=== PATIENT | female | born 1995 | race Caucasian/White ===

== ENCOUNTER 2017-11-30 12:07 | Emergency (ER) | payer MEDICAID, OTHER ==
[~2017-11-30] VITALS: Ht 162.6 cm; Wt 50.0 kg
[2017-11-30 12:13] VITALS: BP 108/76; PULSE 85; RESP 16; TEMP 97.7; O2SAT 100
[2017-11-30] MEDS ORDERED: ONDANSETRON ODT 4 MG TAB PO ONE (16:00)
--- NOTE | 2017-11-30 16:08 | PD ---
HPI Chief Complaint: GI Complaint Time Seen by Provider: 15:50 Travel History International Travel<30 days: No Contact w/Intl Traveler<30days: No Traveled to known affect area: No History of Present Illness HPI Patient is a 21-year-old female comes in complaining of nausea, vomiting, diarrhea. She says she has been around children has had the same symptoms. She says it started yesterday and she is starting to feel better. She says she drinks water this morning and vomited but since then has only had diarrhea. She denies any abdominal pain. She says she came in really because she needs a note for work. She denies fever chills. She denies any urinary symptoms. She denies any chance of . [facility], [facility] Past Medical History Medical History: Denies Significant Hx ?: Not LMP: 11/30/17 Past Surgical History Surgical History: No Previous Surgery Social History Alcohol Use: No Tobacco Use: No Substance Use: No Allergies-Medications (Allergen,Severity, Reaction): Coded Allergies: iodine (Verified Allergy, Severe, Anaphylaxis, 11/30/17) Review of Systems General / Constitutional: No: Fever, Chills HENT: No: Headaches, Lightheadedness Cardiovascular: No: Chest Pain or Discomfort Respiratory: No: Shortness of Breath Gastrointestinal: Positive: Nausea, Vomiting, Diarrhea, No: Abdominal Pain Musculoskeletal: No: Myalgias Skin: No Rash, No Change in Pigmentation Neurologic: No: Weakness, Dizziness Physical Exam Narrative GENERAL: Awake and alert, in no acute distress. SKIN: Focused skin assessment warm/dry. No wounds or signs of infection. HEAD: Atraumatic. Normocephalic. EYES: Pupils equal and round. No scleral icterus. ENT: Mucous membranes pink and moist. NECK: Trachea midline. No JVD. CARDIOVASCULAR: Regular rate and rhythm. No murmur appreciated. RESPIRATORY: No accessory muscle use. Clear to auscultation. Breath sounds equal bilaterally. GASTROINTESTINAL: Abdomen soft, non-tender, nondistended. MUSCULOSKELETAL: No obvious deformities. No clubbing. No cyanosis. No edema. NEUROLOGICAL: Awake and alert. No obvious cranial nerve deficits. Motor grossly within normal limits. Normal speech. PSYCHIATRIC: Appropriate mood and affect; insight and judgment normal. Data Data Last Documented VS Vital Signs Date Time Temp Pulse Resp B/P (MAP) Pulse Ox O2 Delivery O2 Flow Rate FiO2 3/25/18 12:13 97.7 85 16 108/76 (87) 100 Orders Orders Ondansetron Odt (Zofran Odt) (11/30/17 16:00) [facility] Medical Decision Making Medical Screen Exam Complete: Yes Emergency Medical Condition: Yes Differential Diagnosis Gastroenteritis versus gastritis versus dehydration versus electrolyte abnormality Narrative Course Patient is a 21-year-old female who comes in complaining of nausea, vomiting, diarrhea. Exam shows no abdominal tenderness. Patient does not wish to have any blood work or IV established. She is given a p.o. of Zofran. She is able to drink water without vomiting. She is encouraged to drink plenty of fluids. Advised to eat a bland diet if she is feeling hungry. Advised follow-up with a primary care doctor. Advised return to the ED as needed for any worsening symptoms. Diagnosis Primary Impression: Gastroenteritis Patient Instructions: Acute Nausea and Vomiting (ED), General Instructions Additional Instructions: Drink plenty of fluids. Eat a bland diet if you are feeling hungry. Follow-up with a primary doctor. Return to the ED as needed for any worsening symptoms. Disposition: 01 DISCHARGE HOME Condition: Stable Phyllis José MD Nov 30, 2017 16:08
== END 2017-11-30 16:31 | disposition home or self-care (01) ==
LOC: NEPD 12:07
DX: K52.9 Noninfective gastroenteritis and colitis, unspecified (principal)
CPT/HCPCS: 99283

== ENCOUNTER 2018-02-10 12:11 | Emergency (ER) | payer SELFPAY ==
[2018-02-10 12:21] VITALS: BP 116/68; PULSE 103; RESP 16; TEMP 98.7; O2SAT 98
[2018-02-10] MEDS ORDERED: AMOX875T PO (12:32)
[2018-02-10] MEDS ORDERED: FLUT1SPR5 EACH NARE (12:32)
--- NOTE | 2018-02-10 12:38 | PD ---
HPI Chief Complaint: ENT Complaint Time Seen by Provider: 12:24 Travel History International Travel<30 days: No Contact w/Intl Traveler<30days: No Traveled to known affect area: No History of Present Illness HPI 22-year-old female presents emergency department with 2 week history of intermittent sore throat and nasal congestion. She has had increased pain and swelling in the throat in the past 24 hours. She reports that she felt "hot " all last night and this morning. She states headache which is frontal and sinus in nature for the past couple of weeks. She denies ear pain, nausea, vomiting, or heartburn. Throat pain currently 7 out of 10. She is somewhat hoarse. She denies seasonal allergies. She is allergic to iodine [facility] Social History Alcohol Use: No Tobacco Use: No Substance Use: No Allergies-Medications (Allergen,Severity, Reaction): Coded Allergies: iodine (Verified Allergy, Severe, Anaphylaxis, 11/30/17) Reported Meds & Prescriptions Reported Meds & Active Scripts Active Flonase Nasal [place] (Fluticasone Nasal [place]) 50 Mcg/Act [place] 100 Mcg EACH NARE BID Amoxicillin 875 Mg Tab 875 Mg PO BID 10 Days Review of Systems Except as stated in HPI: all other systems reviewed are Neg General / Constitutional: No: Fever Eyes: No: Visual changes HENT: Positive: Sore Throat, Rhinitis, Rhinorrhea, Congestion, No: Headaches, Vertigo, Lightheadedness, Nosebleed, Neck Stiffness, Neck Pain, Dental Difficulties, Earache Cardiovascular: No: Chest Pain or Discomfort Respiratory: No: Shortness of Breath Gastrointestinal: No: Abdominal Pain Genitourinary: No: Dysuria Musculoskeletal: No: Pain Skin: No Rash Neurologic: No: Weakness Psychiatric: No: Depression Endocrine: No: Polydipsia Hematologic/Lymphatic: No: Easy Bruising Physical Exam Narrative GENERAL: Patient appears in no obvious distress. SKIN: Warm and dry. Normal color. Normal turgor. HEAD: Atraumatic. Normocephalic. Mild maxillary sinus tenderness bilaterally per EYES: Pupils equal and round. No scleral icterus. No injection or drainage. ENT: No nasal bleeding or discharge. Mucous membranes pink and moist. Posterior pharynx has injection with cobblestoning and postnasal drip noted. No significant tonsillitis. Airway is patent. NECK: Trachea midline. Supple and nontender without significant lymphadenopathy. CARDIOVASCULAR: Regular rate and rhythm. No murmurs gallops or rubs. RESPIRATORY: No accessory muscle use. Clear to auscultation. Breath sounds equal bilaterally. GASTROINTESTINAL: Abdomen soft, non-tender, nondistended. Hepatic and splenic margins not palpable. MUSCULOSKELETAL: Extremities without clubbing, cyanosis, or edema. No obvious deformities. NEUROLOGICAL: Awake and alert. No obvious cranial nerve deficits. Motor grossly within normal limits. Five out of 5 muscle strength in the arms and legs. Normal speech. PSYCHIATRIC: Appropriate mood and affect; insight and judgment normal. Data Data Last Documented VS Vital Signs Date Time Temp Pulse Resp B/P (MAP) Pulse Ox O2 Delivery O2 Flow Rate FiO2 02/10/18 12:21 98.7 103 16 116/68 (84) 98 Orders Orders Ed Discharge Order (02/10/18 12:38) [facility] Medical Decision Making Medical Screen Exam Complete: Yes Emergency Medical Condition: Yes Differential Diagnosis Tonsillitis. Pharyngitis. Sinus infection. Postnasal drip Narrative Course Patient will be treated with amoxicillin 875 twice daily for 10 days. Patient also to take Flonase nasal spray 2 sprays each nostril daily. Patient can take [id number] ibuprofen and Tylenol as needed. Work note for today is given. Patient to follow-up if symptoms worsen as needed. Diagnosis Primary Impression: Sinusitis, acute maxillary Qualified Codes: J01.00 - Acute maxillary sinusitis, unspecified Patient Instructions: General Instructions, Sinusitis (ED) Departure Forms: Work Release Enter return to work date: Feb 11, 2018 Additional Instructions: Patient will be treated with amoxicillin 875 twice daily for 10 days. Patient also to take Flonase nasal spray 2 sprays each nostril daily. Patient can take [id number] ibuprofen and Tylenol as needed. Work note for today is given. Patient to follow-up if symptoms worsen as needed. Med/Other Pt SpecificInfo: Prescription(s) given Scripts Fluticasone Nasal [place] (Flonase Nasal [place]) 50 Mcg/Act [place] 100 MCG EACH NARE BID for Allergies, #1 BOTTLE 0 Refills Prov: Ray Garcia MD 02/10/18 Amoxicillin (Amoxicillin) 875 Mg Tab 875 MG PO BID for Infection for 10 Days, #20 TAB 0 Refills Prov: Ray Garcia MD 02/10/18 Disposition: 01 DISCHARGE HOME Condition: Stable Nasir Roberto Feb 10, 2018 12:38
== END 2018-02-10 12:59 | disposition home or self-care (01) ==
LOC: NEPK 12:11
DX: J01.00 Acute maxillary sinusitis, unspecified (principal)
CPT/HCPCS: 99283